=== PATIENT | male | born 1955 | race African-American/Black ===

== ENCOUNTER 2024-09-28 22:48 | Inpatient (IN) | payer MEDICARE, MEDICAID ==
[~2024-09-28] VITALS: Ht 172.7 cm; Wt 112.4 kg
[~2024-09-28 22:48] MED LIST: AMLO10TA80 PO; ASCO100T12 PO; ASPI-1406 PO; ATOR40TA70 PO; CHOL200026 PO; CYAN50004 PO; FERR325T6 PO; FURO-151 PO; GUAI100L74 PO; ISOS20TA8 PO; LABE200T9 PO; LEVE500T19 PO; LEVO25TA7 PO; MELA5TAB19 PO; METF-414 PO; MULT-11 PO; NIFE-49 PO; NITR0.4T49 SL
[2024-09-28 23:26] VITALS: RESP 23
[2024-09-28] MEDS: ONDANSETRON HCL 4MG/2ML INJ IV ONE (23:50)
[2024-09-28] MEDS: LABETALOL 5MG/ML 4ML INJ IV ONE (23:50)
[2024-09-28 23:52] LABS: BASOPHILS % 1.1 % (0.0-2.0); EOSINOPHILS % 4.3 % (0.0-5.0); HEMATOCRIT. 30.2 % (42.0-52.0); HEMOGLOBIN. 9.8 g/dL (14.0-18.0); LYMPHOCYTES % 16.8 % (20.0-50.0); MEAN CORPUSCULAR HEMOGLOBIN 31.2 pg (28.0-32.0); MEAN CORPUSCULAR HGB CONC 32.5 g/dL (31.0-37.0); MEAN CORPUSCULAR VOLUME 96.1 fL (80.0-94.0); MEAN PLATELET VOLUME 9.3 fl (7.4-10.4); MONOCYTES % 13.2 % (2.0-8.0); NEUTROPHILS % 64.6 % (40.0-76.0); PLATELET 101 x1000/uL (130-400); RED BLOOD CELL COUNT 3.14 mill/uL (4.7-6.1); RED CELL DISTRIBUTION WIDTH 21.4 % (11.6-14.6); WHITE BLOOD COUNT 5.1 x1000/uL (4.5-11.0)
[2024-09-28 23:54] LABS: CHLORIDE 102 mEq/L (98-107); POTASSIUM 5.5 mEq/L (3.5-5.1); SODIUM 137 mEq/L (136-145)
[2024-09-28 23:55] LABS: CALCIUM 8.6 mg/dL (8.7-10.4); CARBON DIOXIDE 26 mEq/L (21-32)
[2024-09-29] VITALS (15 sets, daily range): BP systolic 145–186; BP diastolic 91–143; PULSE 115–131; RESP 13–28; TEMP 36.3918–37.05852; O2SAT 95–100
[2024-09-29] LABS: GLUCOSE 113 mg/dL (70-105); UREA NITROGEN BLOOD 72 mg/dL (9-23)
[2024-09-29 00:18] LABS: CREATININE 7.4 mg/dL (0.6-1.3); TROPONIN I HIGH SENSITIVITY 229 ng/L (3.0-53)
[2024-09-29 01:38] LABS: TROPONIN I HIGH SENSITIVITY 212 ng/L (3.0-53)
[2024-09-29] MEDS: INSULIN REGULAR (HUMULIN R) 1000UNITS/10ML VIAL IV ONE (02:06)
[2024-09-29] MEDS: DEXTROSE 50% WATER 50ML SYRINGE IV ONE (02:07)
[2024-09-29] MEDS: SODIUM BICARBONATE 8.4% 50MEQ/50ML SYR IV ONE (02:07)
[2024-09-29] MEDS ORDERED: DOCUSATE SODIUM 100MG CAPSULE PO PRN (05:00)
[2024-09-29] MEDS: HYDRALAZINE 20MG/ML VIAL IV NR (05:00)
[2024-09-29] MEDS ORDERED: ACETAMINOPHEN 325MG TABLET PO PRN (05:00)
[2024-09-29] MEDS ORDERED: ONDANSETRON HCL 4MG/2ML INJ IV PRN (05:00)
[2024-09-29] MEDS ORDERED: DEXTROSE 50% WATER 50ML SYRINGE IV PRN (05:00)
[2024-09-29] MEDS ORDERED: IPRATROPIUM/ALBUTEROL 0.5-3(2.5)MG/3ML NEB HHN PRN (05:00)
[2024-09-29] MEDS: IPRATROPIUM/ALBUTEROL 0.5-3(2.5)MG/3ML NEB HHN SCH (06:00)
[2024-09-29 06:12] LABS: BASOPHILS % 1.1 % (0.0-2.0); EOSINOPHILS % 2.8 % (0.0-5.0); HEMATOCRIT. 30.6 % (42.0-52.0); HEMOGLOBIN. 10.1 g/dL (14.0-18.0); LYMPHOCYTES % 9.2 % (20.0-50.0); MEAN CORPUSCULAR HEMOGLOBIN 31.3 pg (28.0-32.0); MEAN CORPUSCULAR HGB CONC 33.1 g/dL (31.0-37.0); MEAN CORPUSCULAR VOLUME 94.6 fL (80.0-94.0); MONOCYTES % 14.5 % (2.0-8.0); NEUTROPHILS % 72.4 % (40.0-76.0); PLATELET 94 x1000/uL (130-400); RED BLOOD CELL COUNT 3.23 mill/uL (4.7-6.1); RED CELL DISTRIBUTION WIDTH 21.7 % (11.6-14.6); WHITE BLOOD COUNT 7.1 x1000/uL (4.5-11.0)
[2024-09-29 06:18] LABS: CARBON DIOXIDE 24 mEq/L (21-32); CHLORIDE 103 mEq/L (98-107); POTASSIUM 5.2 mEq/L (3.5-5.1); SODIUM 137 mEq/L (136-145)
[2024-09-29 06:19] LABS: CALCIUM 8.4 mg/dL (8.7-10.4)
[2024-09-29 06:23] LABS: CREATINE KINASE MB FRACTION 9.2 ng/mL (0.5-3.6); GLUCOSE 81 mg/dL (70-105); IRON 55 ug/dL (65-175)
[2024-09-29 06:24] LABS: TRIGLYCERIDE 42 mg/dL (0-150); UREA NITROGEN BLOOD 75 mg/dL (9-23)
[2024-09-29 06:25] LABS: CHOLESTEROL 83 mg/dL (<200); CREATINE KINASE 188 IU/L (46-171); HDL CHOLESTEROL 43 mg/dL (>55); LDL CHOLESTEROL 26 mg/dL (5-100)
[2024-09-29 06:26] LABS: PHOSPHORUS 5.3 mg/dL (2.5-4.9); TOTAL IRON BINDING CAPACITY 223 ug/dl (250-425)
[2024-09-29 06:28] LABS: FERRITIN 738 ng/mL (22-322); FOLIC ACID (FOLATE) SERUM 15.66 ng/mL (>5.38); T4 FREE 1.25 ng/dL (0.89-1.76); THYROID STIMULATING HORMONE 3.46 uIU/mL (0.55-4.78)
[2024-09-29 06:29] LABS: VITAMIN B12 SERUM 840 pg/mL (211-911)
[2024-09-29 06:56] LABS: CREATININE 7.5 mg/dL (0.6-1.3); TROPONIN I HIGH SENSITIVITY 227 ng/L (3.0-53)
[2024-09-29] MEDS: BLOOD SUGAR DIAGNOSTIC STRIP TEST SCH (08:20)
[2024-09-29] MEDS: BUDESONIDE 0.5MG/2ML NEB HHN SCH (09:00)
[2024-09-29] MEDS: FUROSEMIDE 100MG/10ML VIAL IVP SCH ×2 (09:09→18:03)
[2024-09-29] MEDS: ENOXAPARIN 30MG/0.3ML SYR SUBCUT SCH (09:09)
[2024-09-29 09:38] LABS: HEPATITIS B SURFACE ANTIGEN NEGATIVE (Negative)
[2024-09-29 09:59] LABS: HEPATITIS A AB IGM NEGATIVE (Negative); HEPATITIS B CORE AB IGM NEGATIVE (Negative)
[2024-09-29 10:00] LABS: HEPATITIS C AB NON REACTIVE (Neg) (Negative)
[2024-09-29 11:25] LABS: *AMPHETAMINES SCREEN URINE NEGATIVE (NEGATIVE); *BENZODIAZEPINES SCREEN URINE NEGATIVE (NEGATIVE)
[2024-09-29 11:26] LABS: *BARBITURATES SCREEN URINE NEGATIVE (NEGATIVE); *COCAINE SCREEN URINE PRESUMPTIVE POSITIVE (NEGATIVE); CANNABINOID URINE SCREEN NEGATIVE (NEGATIVE); ECSTASY MDMA SCREEN URINE NEGATIVE (NEGATIVE); METHADONE URINE SCREEN NEGATIVE (NEGATIVE); OPIATES URINE SCREEN NEGATIVE (NEGATIVE); PHENCYCLIDINE URINE SCREEN NEGATIVE (NEGATIVE)
[2024-09-29] MEDS: HYDRALAZINE 20MG/ML VIAL IV PRN (12:53)
[2024-09-29] MEDS: INSULIN LISPRO 100 UNITS/ML SUBCUT SCH (13:00)
[2024-09-29] MEDS: LORAZEPAM 2MG/ML INJ IV NR (18:04)
[2024-09-29] MEDS: LABETALOL HCL 200MG TABLET PO SCH (20:26)
[2024-09-29] MEDS: FAMOTIDINE 20MG TABLET PO SCH (20:27)
[2024-09-29 22:46] LABS: CREATINE KINASE MB FRACTION 9.8 ng/mL (0.5-3.6)
[2024-09-30] VITALS (14 sets, daily range): BP systolic 127–174; BP diastolic 90–112; PULSE 110–120; RESP 13–23; TEMP 36.3918–37.11408; O2SAT 92–100
[2024-09-30 11:02] LABS: HEMATOCRIT 26.5 % (42.0-52.0); HEMOGLOBIN 8.8 g/dL (14.0-18.0); MEAN CORPUSCULAR HEMOGLOBIN 31.4 pg (28.0-32.0); MEAN CORPUSCULAR HGB CONC 33.2 g/dL (31.0-37.0); MEAN CORPUSCULAR VOLUME 94.8 fL (80.0-94.0); PLATELET 82 x1000/uL (130-400); RED CELL DISTRIBUTION WIDTH 21.4 % (11.6-14.6); WHITE BLOOD COUNT 4.6 x1000/uL (4.5-11.0)
[2024-09-30 11:07] LABS: POTASSIUM 5.8 mEq/L (3.5-5.1)
[2024-09-30 11:09] LABS: CALCIUM 8.1 mg/dL (8.7-10.4)
[2024-09-30] MEDS ORDERED: ALBUTEROL (0.083%) 2.5MG/3ML NEB HHN SCH (14:30)
[2024-09-30] MEDS: SODIUM POLYSTYRENE SULFONATE 15 G/60 ML BOT PO NR (16:43)
[2024-09-30] MEDS: CALCIUM CHLORIDE 1,000 MG in DEXT 5% WATER 100 ML IV NR (16:44)
[2024-09-30] MEDS: SODIUM BICARBONATE 8.4% 50MEQ/50ML SYR IV NR (16:44)
[2024-09-30] MEDS: DEXTROSE 50% WATER 50ML SYRINGE IV NR (16:44)
[2024-09-30] MEDS: INSULIN REGULAR (HUMULIN R) 1000UNITS/10ML VIAL IV NR (16:49)
[2024-09-30] MEDS: SILVER SULFADIAZINE 1% CREAM 25GM TOP SCH (17:14)
[2024-10-01] VITALS (23 sets, daily range): BP systolic 131–170; BP diastolic 87–115; PULSE 101–120; RESP 9–22; TEMP 36.28068–36.89184; O2SAT 95–100
[2024-10-01] MEDS: GUAIFENESIN 200MG/10ML SUGAR FREE UDC PO PRN (03:47)
[2024-10-01 07:00] LABS: POTASSIUM 5.5 mEq/L (3.5-5.1)
[2024-10-01 07:01] LABS: CALCIUM 8.1 mg/dL (8.7-10.4)
[2024-10-01 07:12] LABS: MEAN CORPUSCULAR HEMOGLOBIN 31.2 pg (28.0-32.0); MEAN CORPUSCULAR HGB CONC 32.9 g/dL (31.0-37.0); MEAN CORPUSCULAR VOLUME 94.8 fL (80.0-94.0); MEAN PLATELET VOLUME 9.3 fl (7.4-10.4); PLATELET 75 x1000/uL (130-400); RED BLOOD CELL COUNT 2.72 mill/uL (4.7-6.1); RED CELL DISTRIBUTION WIDTH 21.1 % (11.6-14.6); WHITE BLOOD COUNT 4.1 x1000/uL (4.5-11.0)
[2024-10-01 07:18] LABS: DIFFERENTIAL COMMENT 1
[2024-10-01 07:19] LABS: HEMOGLOBIN. 8.5 g/dL (14.0-18.0)
[2024-10-01 07:20] LABS: HEMATOCRIT. 25.8 % (42.0-52.0)
[2024-10-01 07:33] LABS: CREATININE 7.9 mg/dL (0.6-1.3)
[2024-10-01 14:28] LABS: NUCLEATED RED BLOOD CELLS 1 /100 WBC
[2024-10-01 14:29] LABS: ANISOCYTOSIS 3+; PLATELET ESTIMATE DECREASED
[2024-10-01] MEDS ORDERED: LABE200T9 PO (15:34)
[2024-10-02] MEDS ORDERED: FAMOTIDINE 20MG TABLET PO SCH (21:00)
== END 2024-10-01 19:15 | disposition home or self-care (01) | DRG 425 ==
LOC: ER 22:48 → 5EST 09-29 01:39 → EDBEDREQDT 09-29 01:45 → EDBEDREQ 09-29 01:45 → EDBEDREQTM 09-29 01:45
PROVIDERS: ADMIT Hospitalist; ATTEND Hospitalist
PROC: 5A09357 Assistance with Respiratory Ventilation, Less than 24 Consecutive Hours, Continuous Positive Airway Pressure (ICD-10-PCS; principal; 2024-09-29)
PROC: 5A1D70Z Performance of Urinary Filtration, Intermittent, Less than 6 Hours Per Day (ICD-10-PCS; 2024-09-29)
PROC: 5A1D70Z Performance of Urinary Filtration, Intermittent, Less than 6 Hours Per Day (ICD-10-PCS; 2024-10-01)
DX: E87.5 Hyperkalemia (principal); J96.21 Acute and chronic respiratory failure with hypoxia; I21.A1 Myocardial infarction type 2; E11.36 Type 2 diabetes mellitus with diabetic cataract; E11.22 Type 2 diabetes mellitus with diabetic chronic kidney disease; E87.1 Hypo-osmolality and hyponatremia; D53.9 Nutritional anemia, unspecified; J44.1 Chronic obstructive pulmonary disease with (acute) exacerbation; I13.2 Hypertensive heart and chronic kidney disease with heart failure and with stage 5 chronic kidney disease, or end stage renal disease; H40.9 Unspecified glaucoma; I1A.0 Resistant hypertension; N18.6 End stage renal disease; I50.22 Chronic systolic (congestive) heart failure; E11.621 Type 2 diabetes mellitus with foot ulcer; F14.10 Cocaine abuse, uncomplicated; F17.210 Nicotine dependence, cigarettes, uncomplicated; I16.0 Hypertensive urgency; F19.10 Other psychoactive substance abuse, uncomplicated; E11.65 Type 2 diabetes mellitus with hyperglycemia; L98.492 Non-pressure chronic ulcer of skin of other sites with fat layer exposed; L85.3 Xerosis cutis; Z99.2 Dependence on renal dialysis; Z79.4 Long term (current) use of insulin; Z79.84 Long term (current) use of oral hypoglycemic drugs; Z79.899 Other long term (current) drug therapy; Z91.148 Patient's other noncompliance with medication regimen for other reason
CPT/HCPCS: 36415; 71045; 80048; 80061; 80305; 80320; 82550; 82553; 82607; 82728; 82746; 82962; 83036; 83540; 83550; 83735; 83880; 84100; 84439; 84443; 84484; 85025; 85027; 86705; 86709; 87340; 90935; 93970; 94640; 94660; 99291; C1893; J0360; J1650; J1815; J1940; J2060; J2405; J3490; J7060; G0480